=== PATIENT | male | born 1985 | race Caucasian/White ===

== ENCOUNTER 2017-04-29 16:26 | Inpatient (IN) | payer OTHER ==
[~2017-04-29] VITALS: Ht 177.8 cm; Wt 70.8 kg
[2017-04-29 16:26] VITALS: BP 130/90; PULSE 62; RESP 18; TEMP 99; O2SAT 98
[2017-04-29] MEDS ORDERED: DIPHTH/TETANUS/ACEL PERTUSSIS (BOOSTER) 0.5 ML VIAL/PFS IM ONE (16:33)
[2017-04-29 16:39] VITALS: O2SAT 100
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
[2017-04-29 16:52] LABS: AUTOMATED NEUTROPHIL # 4.2 TH/MM3 (1.8-7.7); BASOPHIL % 0.5 % (0.0-2.0); EOSINOPHIL # 0.1 TH/MM3 (0-0.4); EOSINOPHIL % 0.8 % (0.0-4.0); HEMATOCRIT 40.5 % (39.0-51.0); HEMO FLAGS DIFF FINAL; LYMPH % 31.2 % (9.0-44.0); LYMPHOCYTE # 2.2 TH/MM3 (1.0-4.8); MEAN CELL VOLUME 89.2 FL (80.0-100.0); MEAN CORPUSCULAR HEMOGLOBIN 28.7 PG (27.0-34.0); MEAN CORPUSCULAR HGB CONC 32.2 % (32.0-36.0); MONO % 8.7 % (0.0-8.0); NEUT % 58.8 % (16.0-70.0); PLATELET COUNT 152 TH/MM3 (150-450); RED BLOOD COUNT 4.55 MIL/MM3 (4.50-5.90); RED CELL DISTRIBUTION WIDTH 14.3 % (11.6-17.2); WHITE BLOOD COUNT 7.2 TH/MM3 (4.0-11.0)
[2017-04-29 16:53] LABS: I-STAT POTASSIUM 3.9 MMOL/L (3.5-4.9); I-STAT SODIUM 142 MMOL/L (138-146)
[2017-04-29] MEDS ORDERED: IOHEXOL 350 MG/ML 10 ML VIAL (for RAD DIAG) IV ONE (16:53)
[2017-04-29 17:00] VITALS: BP 147/92; PULSE 88; RESP 18; TEMP 98.6; O2SAT 99
[2017-04-29] MEDS ORDERED: SODIUM CHLORIDE 0.9% FLUSH 10 ML FLUSH IV FLUSH PRN (17:00)
[2017-04-29] MEDS ORDERED: Post-op Orders (for Pharmacy) MISC XX ONE (17:00)
[2017-04-29] MEDS ORDERED: NALOXONE HCL 0.4 MG/ML AMP IV PRN (17:00)
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
[2017-04-29 17:04] LABS: APTT (PATIENT) 25.7 SEC (24.3-30.1); PROTHROMBIN TIME - PATIENT 10.7 SEC (9.8-11.6)
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
[2017-04-29] MEDS: SODIUM CHLOR 0.9% 1000 ML INJ 1,000 ML IV SCH (17:49)
[2017-04-29] MEDS: ONDANSETRON HCL 4 MG/2 ML VIAL IV PRN ×2 (17:50→21:37)
[2017-04-29] MEDS: MORPHINE SULFATE 4 MG/ML INJ IV PRN ×2 (17:50→21:37)
[2017-04-29 18:29] LABS: BLOOD, URINE MOD (NEG); COMMENT (UR) CULT NOT INDICATED; CULTURE IF INDICATED CULT NOT INDICATED; GLUCOSE,URINE NEG (NEG); KETONE, URINE TRACE mg/dL (NEG); NITRITE,URINE NEG (NEG); PH, URINE 5.5 (5.0-8.5); URINE COLOR YELLOW (YELLW/STRAW)
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
[2017-04-29 21:30] VITALS: BP 137/72; PULSE 80; RESP 18; TEMP 99; O2SAT 98
[2017-04-29] MEDS: SODIUM CHLORIDE 0.9% FLUSH 10 ML FLUSH IV FLUSH SCH (21:37)
[2017-04-30 00:05] VITALS: BP 124/79; PULSE 85; RESP 18; TEMP 98.9; O2SAT 99
[2017-04-30] MEDS: MORPHINE SULFATE 4 MG/ML INJ IV PRN ×9 (00:21→23:10)
[2017-04-30] MEDS ORDERED: CHLORHEXIDINE GLUCONATE 2 % 1 PACK (2 CLOTHS) TOPICAL PRN (02:00)
[2017-04-30] MEDS ORDERED: LACTATED RINGER'S 1000 ML IV PRN (02:00)
[2017-04-30] MEDS ORDERED: POVIDONE IODINE 5% (ANTISEPSIS KIT) 4 APPLICATIONS EACH NARE PRN (02:00)
[2017-04-30] MEDS ORDERED: INSULIN HUMAN REGULAR 1,000 UNITS/10 ML VIAL SQ PRN (02:00)
[2017-04-30] MEDS ORDERED: SODIUM CHLORID 0.9% 500 ML IV PRN (02:00)
[2017-04-30] MEDS ORDERED: METOPROLOL TARTRATE 25 MG TAB PO PRN (02:00)
[2017-04-30] MEDS: SODIUM CHLOR 0.9% 1000 ML INJ 1,000 ML IV SCH ×2 (04:00→15:45)
[2017-04-30 04:05] VITALS: BP 120/70; PULSE 80; RESP 18; TEMP 97.6; O2SAT 99
[2017-04-30] MEDS ORDERED: LIDOCAINE HCL 5% PATCH T-DERMAL ONE (07:00)
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
[2017-04-30] MEDS: DOCUSATE SODIUM 100 MG CAP PO SCH ×2 (07:37→20:21)
[2017-04-30] MEDS: METHOCARBAMOL 500 MG TAB PO SCH ×3 (07:37→22:39)
[2017-04-30] MEDS: SODIUM CHLORIDE 0.9% FLUSH 10 ML FLUSH IV FLUSH SCH ×2 (07:37→20:21)
[2017-04-30 08:00] VITALS: BP 142/78; PULSE 94; RESP 18; TEMP 100.4; O2SAT 95
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
--- NOTE | 2017-04-30 11:15 | OTSOAPIP ---
PATIENT IS SCHEDULED FOR SURGERY THIS AFTERNOON. Therapist: Laverne Vogel OTR/L Signature on file
[2017-04-30] MEDS ORDERED: ceFAZolin INJ 1,000 MG VIAL ONE (11:42)
[2017-04-30] MEDS ORDERED: VANCOMYCIN HCL 1000 MG VIAL ONE (11:42)
[2017-04-30] MEDS ORDERED: BUPIVACAINE/EPINEPHRINE 0.25% PF 10 ML VIAL ONE (11:42)
[2017-04-30] MEDS ORDERED: SODIUM CHLOR 0.9% 250 ML INJ 250 ML ONE (11:42)
[2017-04-30] MEDS ORDERED: ONDANSETRON HCL 4 MG/2 ML VIAL IV PUSH ONE (12:00)
[2017-04-30] MEDS: ENOXAPARIN SODIUM 30 MG/0.3 ML SYRINGE SQ SCH (12:00)
[2017-04-30] MEDS ORDERED: PROPOFOL 200 MG/20 ML AMP IV ONE (12:00)
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
[2017-04-30] MEDS ORDERED: BUPIVACAINE/EPINEPHRINE 0.25% PF 10 ML VIAL INFIL ONE (12:16)
--- NOTE | 2017-04-30 12:57 | PD.OP ---
cc: Gokul Siu MD Operative Report Date of Surgery: Apr 30, 2017 Preoperative Diagnosis: Left hip subtrochanteric fracture Postoperative Diagnosis: Procedure: Left femur reduction and intramedullary nail fixation Anesthesia: Gen. Surgeon: Gokul Siu Business Specialist(s): Trace Armendariz PA-C The surgical procedure was assisted by my physician school health assistant. My P.A. presence was necessary throughout this case for the manipulation and positioning of the surgical extremity. My P.A. was assisting me throughout the duration of this procedure. The skill set of a physician school health assistant was medically necessary to complete this procedure. During the surgical case the surgical scheduler was working at the back table and the physician school health assistant was directly assisting me. Operation and Findings: Implants used: 11 mm x [380]mm 130 Synthes TFNA troch nail Plan of activity: 50% weightbearing 3 weeks, then weight-bear as tolerated Patient was seen and evaluated preoperatively. The patient has significant hip pain from proximal femur fracture. The risk and benefits of surgery were discussed in depth with the patient to include bleeding, infection, nonunion, malunion, need for hip replacement, painful hardware, as well as medical competitions including blood clots, stroke, heart attack, and . Informed consent was obtained. Operative site was marked. Patient was brought to the operating room and placed on fracture table. IV sedation was administered by anesthesiologist. Timeout procedure was performed. Hip and leg were prepped with alcohol followed by DuraPrep and draped in the usual sterile fashion. IV antibiotics were given prior to incision. Procedure began with reduction of fracture. Traction was applied. The leg was manipulated to achieve reduction. Excellent reduction was achieved. Fluoroscopy was used to confirm reduction. A three inch incision was made proximal to the trochanter. Subcutaneous tissue was dissected bluntly. Guidepin was placed at the tip of the trochanter and advanced into the femoral canal. Fluoroscopy confirmed appropriate guidepin placement. A opening reamer was placed over the guidepin. A long ball tipped guide pin was now placed down the femoral canal into the center of the distal femur. The nail length was now measured. Fluoroscopy confirmed appropriate guidepin placement. Flexible reamers were now passed over the guidepin to ream the intramedullary canal. The Synthes TFNA nail was attached to the insertion handle. Nail was now placed over the guidepin into the femoral canal. Fluoroscopy confirmed appropriate nail placement. A second incision was made over the lateral thigh. Cannulas were placed through the insertion handle down to the femur. Guidepin was now placed through the femoral nail into the center of the femoral head. Fluoroscopy confirmed appropriate guidepin placement. Screw length was measured. Cannulated drill was placed over the guidepin. Appropriate length lag screw was now placed. Traction was released and compression was applied. The set screw was now tightened in dynamic mode. Next, using perfect [place] technique two distal interlocking screws were placed. Screw holes were predrilled and screw lengths were measured. Final fluoroscopy revealed well aligned fracture with well-placed hardware. Incision was closed with 3-0 Vicryl and nichol. Sterile dressings were applied. Patient was awakened and transferred to recovery room. Gokul Siu MD Apr 30, 2017 12:57
[2017-04-30] MEDS ORDERED: SODIUM CHLORIDE 0.9% FLUSH 5 ML FLUSH IVF PRN (13:00)
[2017-04-30] MEDS ORDERED: diphenhydrAMINE HCL 25 MG CAP PO PRN (13:00)
[2017-04-30] MEDS ORDERED: MORPHINE SULFATE 4 MG/ML INJ IV PUSH PRN (13:00)
[2017-04-30] MEDS ORDERED: fentaNYL CITRATE 250 MCG/5 ML AMP ONE (13:24)
[2017-04-30] MEDS ORDERED: MIDAZOLAM HCL 2 MG/2 ML VIAL ONE (13:24)
[2017-04-30] MEDS ORDERED: *morphine SULFATE 8 MG/ML PERIprocedure ONLY ONE ×2 (13:36→13:47)
[2017-04-30] MEDS ORDERED: ERGOCALCIFEROL (VIT D2) 50,000 UNIT CAP PO ONE (15:00)
--- NOTE | 2017-04-30 15:19 | RADRPT ---
EXAM DATE/TIME: 04/30/2017 12:47 [facility] COMPARISON: No previous studies available for comparison. INDICATIONS : ORIF left hip long troch nail. MEDICAL HISTORY : None. SURGICAL HISTORY : None. ENCOUNTER: Subsequent ACUITY: 2 days PAIN SCORE: Non-responsive. LOCATION: Left proximal femur. FINDINGS: The patient is status post ORIF of left proximal femur fracture with hardware in good position. CONCLUSION: Status post ORIF of left proximal femur fracture with hardware in good position. Vineet Montana MD on April 30, 2017 at 15:16 Board Certified Radiologist. This report was verified electronically.
[2017-04-30] MEDS: CALCIUM/VITAMIN D 250 MG/125 U TAB PO SCH ×2 (15:37→17:55)
[2017-04-30 16:30] VITALS: BP 132/77; PULSE 78; RESP 18; TEMP 98.5; O2SAT 99
[2017-04-30] MEDS: ACETAMINOPHEN/HYDROcodone 325 MG/10 MG TAB PO PRN ×2 (19:18→22:39)
[2017-04-30 19:40] VITALS: BP 139/73; PULSE 72; RESP 18; TEMP 99.9; O2SAT 100
[2017-04-30] MEDS: MAGNESIUM HYDROXIDE SUSP 30 ML CUP PO SCH ×2 (20:21→21:00)
[2017-04-30] MEDS: FAMOTIDINE 20 MG TAB PO SCH (20:24)
[2017-04-30] MEDS: SODIUM CHLORIDE 0.9% FLUSH 5 ML FLUSH IVF SCH (20:25)
[2017-05-01] VITALS (7 sets, daily range): BP systolic 108–118; BP diastolic 62–83; PULSE 70–100; RESP 17–20; TEMP 97.5–100.6; O2SAT 97–99
[2017-05-01] MEDS: MORPHINE SULFATE 4 MG/ML INJ IV PRN ×8 (01:23→23:08)
[2017-05-01] MEDS: ACETAMINOPHEN/HYDROcodone 325 MG/10 MG TAB PO PRN ×5 (03:23→22:19)
[2017-05-01] MEDS: METHOCARBAMOL 500 MG TAB PO SCH ×3 (06:41→22:18)
[2017-05-01 07:20] LABS: AUTOMATED NEUTROPHIL # 4.5 TH/MM3 (1.8-7.7); BASOPHIL % 0.3 % (0.0-2.0); EOSINOPHIL % 0.6 % (0.0-4.0); HEMO FLAGS DIFF FINAL; LYMPH % 28.6 % (9.0-44.0); LYMPHOCYTE # 2.4 TH/MM3 (1.0-4.8); MEAN CELL VOLUME 87.4 FL (80.0-100.0); MEAN CORPUSCULAR HEMOGLOBIN 28.5 PG (27.0-34.0); MEAN CORPUSCULAR HGB CONC 32.6 % (32.0-36.0); MONO % 15.8 % (0.0-8.0); NEUT % 54.7 % (16.0-70.0); PLATELET COUNT 128 TH/MM3 (150-450); RED CELL DISTRIBUTION WIDTH 14.1 % (11.6-17.2); WHITE BLOOD COUNT 8.2 TH/MM3 (4.0-11.0)
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
[2017-05-01] MEDS: DOCUSATE SODIUM 100 MG CAP PO SCH ×2 (07:40→20:00)
[2017-05-01] MEDS: CALCIUM/VITAMIN D 250 MG/125 U TAB PO SCH ×3 (07:40→16:38)
[2017-05-01] MEDS: SODIUM CHLORIDE 0.9% FLUSH 5 ML FLUSH IVF SCH ×2 (07:40→20:00)
[2017-05-01] MEDS: SODIUM CHLORIDE 0.9% FLUSH 10 ML FLUSH IV FLUSH SCH ×2 (07:40→20:00)
[2017-05-01] MEDS: CHOLECALCIFEROL (VIT D3) 5000 UNIT CAP PO SCH (07:40)
[2017-05-01 07:55] LABS: ALT (GPT) 25 U/L (12-78); ANION GAP 7 MEQ/L (5-15); AST (GOT) 31 U/L (15-37); BICARBONATE 28.2 MEQ/L (21.0-32.0); BLOOD UREA NITROGEN 8 MG/DL (7-18); CHLORIDE 105 MEQ/L (98-107); GLOMERULAR FILTRATION RATE 97 ML/MIN (>89); POTASSIUM 3.8 MEQ/L (3.5-5.1); SODIUM (NA) 140 MEQ/L (136-145)
[2017-05-01 07:58] LABS: ALKALINE PHOSPHATASE 61 U/L (45-117); TOTAL BILIRUBIN ADULT 0.6 MG/DL (0.2-1.0)
[2017-05-01] MEDS: SODIUM CHLOR 0.9% 1000 ML INJ 1,000 ML IV SCH ×3 (10:00→20:00)
--- NOTE | 2017-05-01 10:35 | HHI.FF ---
Face to Face Verification Diagnosis: (1) Multiple fractures of ribs of left side (2) Femur fracture, left Physical Therapy Order: Evaluate and Treat, Improve ambulation, Strength and gait training Home Health Nursing Order: Medical education Signs/symptoms of disease process Medication education-adverse effect Nursing assessment with vital signs I have seen patient Sabino [email or web address] on 05/01/17. My clinical findings support the need for the requested home health care services because: Ltd mobility - disease progression Deconditioned w/ increased weakness Limited ability to care for self High risk of falls I certify that my clinical findings support that this patient is homebound because: Post-op weakness Unsteady gait/balance Unsafe to leave home unassisted [id number] bed/chair Riddhi Barba May 01, 2017 10:34
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
[2017-05-01] MEDS: ENOXAPARIN SODIUM 30 MG/0.3 ML SYRINGE SQ SCH (12:54)
[2017-05-01] MEDS: FAMOTIDINE 20 MG TAB PO SCH (20:00)
[2017-05-01] MEDS: MAGNESIUM HYDROXIDE SUSP 30 ML CUP PO SCH (20:00)
[2017-05-02] VITALS: BP 110/59; PULSE 88; RESP 17; TEMP 99.8; O2SAT 98
[2017-05-02] MEDS: ACETAMINOPHEN/HYDROcodone 325 MG/10 MG TAB PO PRN ×4 (01:34→12:26)
[2017-05-02] MEDS: MORPHINE SULFATE 4 MG/ML INJ IV PRN ×2 (02:25→06:50)
[2017-05-02 04:05] VITALS: BP 102/66; PULSE 77; RESP 16; TEMP 99.6; O2SAT 98
[2017-05-02] MEDS: METHOCARBAMOL 500 MG TAB PO SCH (05:25)
[2017-05-02] MEDS: SODIUM CHLOR 0.9% 1000 ML INJ 1,000 ML IV SCH (05:27)
--- NOTE | 2017-05-02 06:25 | RADRPT ---
EXAM DATE/TIME: 05/02/2017 05:07 [facility] COMPARISON: CHEST SINGLE AP, May 01, 2017, 6:32. INDICATIONS : Short of breath. MEDICAL HISTORY : None. SURGICAL HISTORY : None. ENCOUNTER: Subsequent ACUITY: 4 - 6 days PAIN SCORE: Non-responsive. LOCATION: Bilateral chest FINDINGS: The lungs are clear without infiltrate, nodule, or mass. There is no appreciable pleural effusion fo r technique. Heart and mediastinum are unremarkable. CONCLUSION: No acute cardiopulmonary disease. Eben Miller MD on May 02, 2017 at 6:23 Board Certified Radiologist. This report was verified electronically.
[2017-05-02] MEDS ORDERED: WALKER WHEELS/F1 MIS (06:52)
[2017-05-02] MEDS ORDERED: HYDR-3583 PO ×2 (06:52→15:50)
[2017-05-02] MEDS ORDERED: ERGO1CAP30 PO (06:52)
[2017-05-02] MEDS ORDERED: CALCTAB19 PO (06:52)
[2017-05-02] MEDS ORDERED: XARE10TA PO (06:52)
--- NOTE | 2017-05-02 06:54 | PD.ORT.PN ---
Subjective Subjective Remarks Resting comfortably no new complaints Objective Vitals Vital Signs Date Time Temp Pulse Resp B/P Pulse Ox O2 Delivery O2 Flow Rate FiO2 05/02/17 04:05 99.6 77 16 102/66 98 05/02/17 00:00 99.8 88 17 110/59 98 05/01/17 20:10 16 05/01/17 20:00 98.4 93 17 111/67 98 05/01/17 19:05 18 05/01/17 16:00 100.6 74 20 112/69 98 05/01/17 12:00 98.4 76 19 118/71 99 05/01/17 08:00 97.5 100 18 108/62 98 05/01/17 07:50 98 I/O 05/01/17 05/01/17 05/01/17 05/02/17 05/02/17 05/02/17 07:00 15:00 23:00 07:00 15:00 23:00 Intake Total 936 ml 1200 ml 480 ml Output Total 300 ml 1300 ml 750 ml Balance 636 ml -100 ml -270 ml Intake Oral 480 ml 1200 ml 480 ml IV Total 456 ml Output Urine Total 300 ml 1300 ml 750 ml # Bowel Movements 0 0 0 Result Diagram: 05/01/17 0607 05/01/17 0607 Imaging Last 24 hours Impressions Pelvis X-Ray 04/29/171628 Signed Impressions: Service Date/Time: Saturday, April 29, 2017 16:20 - CONCLUSION: Acute subtrochanteric fracture involving the left proximal femur. Vineet Montana MD Head CT 04/29/171628 Signed Impressions: Service Date/Time: Saturday, April 29, 2017 16:40 - CONCLUSION: No acute disease. Vineet Montana MD Chest X-Ray 04/29/171628 Signed Impressions: Service Date/Time: Saturday, April 29, 2017 16:20 - CONCLUSION: 1. No acute cardiopulmonary findings. Mahin Bey MD Chest CT 04/29/171628 Signed Impressions: Service Date/Time: Saturday, April 29, 2017 16:43 - CONCLUSION: Acute nondisplaced fractures involving the intra-aspects of the left third, fourth and fifth ribs as well as the lateral aspect of the left seventh, eighth and ninth ribs. No pneumothorax is noted. Vineet Montana MD Cervical Spine CT 04/29/171628 Signed Impressions: Service Date/Time: Saturday, April 29, 2017 16:40 - CONCLUSION: 1. No acute fracture identified. Mahin Bey MD Abdomen/Pelvis CT 04/29/171628 Signed Impressions: Service Date/Time: Saturday, April 29, 2017 16:43 - CONCLUSION: 1. Acute comminuted displaced subtrochanteric fracture of left proximal femur. 2. No intra-abdominal trauma. Vineet Montana MD Objective Remarks Bilateral upper extremities full range of motion neurovascularly intact Right lower extremity: Full range of motion and neurovascularly intact Left lower extremity: Clean dry dressings intact. Compartments soft. Intact sensation distally. Strong dorsal flexion plantar flexion of foot Assessment & Plan Assessment and Plan Left subtrochanteric femur fracture status post IM nail POD 2 Daily dressing changes Lovenox then convert to Xarelto after discharge Incentive spirometry Physical therapy 50% weightbearing left lower extremity Discharge to rehabilitation when bed available Follow-up with Dr. iSu or PA in 2 weeks Marlon Armendariz Jr. May 02, 2017 06:54
[2017-05-02 08:00] VITALS: BP 113/67; PULSE 77; RESP 16; TEMP 99.1; O2SAT 98
[2017-05-02] MEDS: CALCIUM/VITAMIN D 250 MG/125 U TAB PO SCH ×2 (08:55→12:28)
[2017-05-02] MEDS: DOCUSATE SODIUM 100 MG CAP PO SCH (08:55)
[2017-05-02] MEDS: SODIUM CHLORIDE 0.9% FLUSH 10 ML FLUSH IV FLUSH SCH (08:56)
[2017-05-02] MEDS: CHOLECALCIFEROL (VIT D3) 5000 UNIT CAP PO SCH (08:57)
[2017-05-02] MEDS: SODIUM CHLORIDE 0.9% FLUSH 5 ML FLUSH IVF SCH (08:57)
[2017-05-02 09:11] VITALS: O2SAT 98
[2017-05-02] MEDS: IBUPROFEN 800 MG TAB PO SCH ×2 (09:17→14:00)
[2017-05-02] MEDS ORDERED: MAGNESIUM CITRATE SOLN 300 ML BTL PO ONE (11:30)
[2017-05-02] MEDS: ENOXAPARIN SODIUM 30 MG/0.3 ML SYRINGE SQ SCH (11:36)
[2017-05-02 12:00] VITALS: BP 111/64; PULSE 73; RESP 16; TEMP 98.6; O2SAT 99
[2017-05-02] MEDS ORDERED: METHOCARBAMOL 500 MG TAB PO SCH (14:00)
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
[2017-05-02] MEDS ORDERED: ENOX30P SQ (15:49)
[2017-05-02] MEDS ORDERED: IBUP800T23 PO (15:50)
[2017-05-02] MEDS ORDERED: METH500T3 PO (15:50)
[2017-05-02] MEDS ORDERED: MAGN400S PO (15:50)
[2017-05-02] MEDS ORDERED: DOCU1CAP39 PO (15:50)
== END 2017-05-02 16:35 | disposition home health service (06) | DRG 481 ==
LOC: NEPI 16:26 → EDBD 17:59 → NEDA 17:59 → N06A 21:06
PROVIDERS: ADMIT Surgery; ATTEND Surgery
PROC: 0QS736Z Reposition Left Upper Femur with Intramedullary Internal Fixation Device, Percutaneous Approach (ICD-10-PCS; principal; 2017-04-30 11:48)
DX: S72.22XA Displaced subtrochanteric fracture of left femur, initial encounter for closed fracture (principal); S22.42XA Multiple fractures of ribs, left side, initial encounter for closed fracture; F17.200 Nicotine dependence, unspecified, uncomplicated; V58.5XXA Driver of pick-up truck or van injured in noncollision transport accident in traffic accident, initial encounter; Y92.410 Unspecified street and highway as the place of occurrence of the external cause
CPT/HCPCS: 70450; 71010; 71260; 72125; 72170; 73551; 73552; 73700; 74177; 76000; 80053; 80307; 81001; 82435; 82565; 82947; 84132; 84295; 84520; 85025; 85610; 85730; 86850; 86900; 86901; 86920; 90715; 94150; 94640; 94667; 94668; 96374; 99291; C1713; G0390; J0690; J1650; J2250; J2270; J2405; J3010; J3370; J7030; J7050; J7120; Q9967